=== PATIENT | female | born 1985 | race Caucasian/White ===

== ENCOUNTER 2017-04-24 15:06 | Emergency (ER) | payer BC, MEDICAID ==
[2017-04-24] MEDS ORDERED: Ondansetron ODT TAB* 4 MG PO ONE (15:22)
--- NOTE | 2017-04-24 15:24 | UC ---
UC General HPI - HPI Summary HPI Summary: 31 y/o female presents to the urgent care c/o vomiting w/ a BATES since this morning. Pt states about 2 days ago she started with allergies or cold symptoms , nasal congestion w/ yellowish drainage and sinus pressure, feeling warm at home, Taking Dayquil. This morning she had a severe BATES and then 2 episodes of vomiting and body aches . Then, with a loose bowel movement. Her BATES is 9/10 and temporal. Pt denies photophobia,dizziness, Neck pain, chest pain, SOB, cough , sore throat, abdominal pain. No exposure to tick bites. - History of Current Complaint Chief Complaint: UCGeneralIllness Stated Complaint: FEVER,VOMITING Time Seen by Provider: 04/24/17 15:18 Hx Obtained From: Patient Hx Last Menstrual Period: 04/14/17 Onset/Duration: Gradual Onset, Lasting Days, Still Present Onset Severity: Mild - cold symptoms Current Severity: Severe - Headache w/ vomiting Associated Signs & Symptoms: Positive: Headache, Nausea, Vomiting, Weakness - Allergy/Home Medications Allergies/Adverse Reactions: Allergies Allergy/AdvReac Type Severity Reaction Status Date / Time No Known Allergies Allergy Verified 09/14/15 09:41 PMH/Surg Hx/FS Hx/Imm Hx Previously Healthy: Yes Neurological History: Seizures - as a child - Surgical History Surgical History: Yes Surgery Procedure, Year, and Place: R shoulder arthroscopy - Family History Known Family History: Positive: None - Social History Occupation: Employed Full-time Lives: With Family Alcohol Use: Occasionally Substance Use Type: None Smoking Status (MU): Never Smoked Tobacco Review of Systems Constitutional: Negative Skin: Negative Eyes: Blurred Vision ENT: Nasal Discharge, Sinus Congestion Respiratory: Negative Cardiovascular: Negative Gastrointestinal: Vomiting, Nausea Genitourinary: Negative Motor: Negative Neurovascular: Negative Musculoskeletal: Negative Neurological: Headache Psychological: Negative All Other Systems Reviewed And Are Negative: Yes Physical Exam Triage Information Reviewed: Yes Appearance: Well-Appearing, No Pain Distress, Well-Nourished, Thin Vital Signs: Initial Vital Signs Temp 97.5 F 04/24/17 15:10 Pulse 102 04/24/17 15:10 Resp 16 04/24/17 15:10 BP 100/61 04/24/17 15:10 Pulse Ox 98 04/24/17 15:10 Vital Signs Reviewed: Yes Eye Exam: Normal Eyes: Positive: Conjunctiva Clear - PERRLA, EOMI, fundi grossly normal ENT: Positive: Normal ENT inspection, Hearing grossly normal, Nasal congestion, Nasal drainage - yellowish drainage, B/l maxillary sinus tender to palpation., TMs normal, Other:. Negative: Tonsillar swelling, Tonsillar exudate Dental Exam: Normal Neck exam: Normal Neck: Positive: Supple, Nontender, No Lymphadenopathy Respiratory Exam: Normal Respiratory: Positive: Chest non-tender, Lungs clear, Normal breath sounds Cardiovascular Exam: Normal Cardiovascular: Positive: RRR, No Murmur, Pulses Normal, Brisk Capillary Refill Abdominal Exam: Normal Abdomen Description: Positive: Nontender, No Organomegaly, Soft. Negative: CVA Tenderness (R), CVA Tenderness (L) Bowel Sounds: Positive: Present Musculoskeletal Exam: Normal Musculoskeletal: Positive: Strength Intact, ROM Intact, No Edema Neurological Exam: Normal Psychological Exam: Normal Skin Exam: Normal Course/Dx - Course Course Of Treatment: 31 y/o female presents to the urgent care c/o vomiting w/ a BATES since this morning. Pt states about 2 days ago she started with allergies or cold symptoms, nasal congestion w yellowish drainage and sinus pressure, feeling warm at home, Taking Dayquil. This morning she had a severe BATES and then 2 episodes of vomiting and body aches . Then, with a loose bowel movement. Her BATES is 9/10 and temporal. Pt denies photophobia,dizziness, Neck pain, chest pain, SOB, cough, sore throat, abdominal pain. No exposure to tick bites. HX obtained. Pt with one episode of vomiting at the clinic, Pt given Toradol IM INJ and Zofran to alleviate symptoms. Pt tolerated well meds and after 20 min of observation she felt better, Bates resolved and vomiting. Pt Rx Naproxen PO and Zofran to alleviate symptoms. for allergic rhinitis Loratdine and Flonase. Pt instructed on medications. Pt understood and agreed. Left the clinic ambulating and feeling better. - Differential Dx - Multi-Symptom Differential Diagnoses: Other - gastroenterits, influenza, Headache, lyme disease, sinusitis, pharyngitis Provider Diagnoses: 1-Headache. 2- Nausea and vomiting. 3- Allergic rhinitis Discharge - Discharge Plan Condition: Stable Disposition: HOME Prescriptions: Fluticasone NASAL SPRAY 50MCG* [Flonase NASAL SPRAY 50MCG*] 2 spray BOTH NARES DAILY #1 btl Loratadine & Pseudoephedrine [Loratadine-D 12Hr] 1 tab PO BID #30 tab Naproxen TAB* [Naprosyn 250 mg TAB*] 500 mg PO Q8H PRN #30 tab PRN Reason: Headache Ondansetron ODT TAB* [Zofran 4 MG Odt TAB*] 4 mg PO Q6H PRN #12 tab.odt PRN Reason: Vomiting Patient Education Materials: Acute Headache (ED), Sinusitis (ED), Acute Nausea and Vomiting (ED) Referrals: Celena Adair MD [Medical Doctor] - If Needed Additional Instructions: Take Naproxen PO as instructed after meals to alleviate Headache. Take the Zofran if vomiting continues. increase fluid intake by drinking Gatorade or Pedialyte OTC and eat soft meals. If headache continues and fever develops go immediately to the ER for fruther treatment. Otherwise, f/u with your PCP or return to the urgent care if not improvement.
[2017-04-24] MEDS ORDERED: Ketorolac INJ* 60 MG/2 ML VIAL IM ONE (15:26)
[2017-04-24 16:19] VITALS: BP 104/60
== END 2017-04-24 16:24 | disposition home or self-care (01) ==
LOC: UCCORT 15:06
DX: R51 Headache (principal); R11.2 Nausea with vomiting, unspecified; J30.9 Allergic rhinitis, unspecified
CPT/HCPCS: 96372; 99212; A9270-GY; G0463; J1885

== ENCOUNTER 2017-05-24 21:55 | Emergency (ER) | payer BC ==
[2017-05-24 21:59] VITALS: BP 109/67
--- NOTE | 2017-05-24 22:06 | UC ---
Throat Pain/Nasal Sanjeev HPI - HPI Summary HPI Summary: sore throat x 3 days + fever, no chills, no nasal congestion or cough - History of Current Complaint Chief Complaint: UCRespiratory Stated Complaint: SORE THROAT,HEADACHE,FEVER Time Seen by Provider: 05/24/17 21:56 Hx Obtained From: Patient Hx Last Menstrual Period: 05/13/17 ?: No Onset/Duration: Gradual Onset, Lasting Days - 3 Severity: Moderate Associated Signs & Symptoms: Positive: Fever. Negative: Dysphagia, FB Sensation , Drooling, Wheezing, Hoarseness, Sinus Discomfort, Nasal Discharge, Vomiting, Rash, Other - Allergies/Home Medications Allergies/Adverse Reactions: Allergies Allergy/AdvReac Type Severity Reaction Status Date / Time No Known Allergies Allergy Verified 05/24/17 21:59 Home Medications: Home Medications NK [No Home Medications Reported] 05/24/17 [History Confirmed 05/24/17] PMH/Surg Hx/FS Hx/Imm Hx Previously Healthy: Yes - Surgical History Surgical History: Yes Surgery Procedure, Year, and Place: R shoulder arthroscopy - Family History Known Family History: Positive: None Negative: Diabetes - Social History Alcohol Use: Rare Substance Use Type: None Smoking Status (MU): Never Smoked Tobacco - Immunization History Most Recent Influenza Vaccination: no Review of Systems Constitutional: Fever, Chills, Fatigue Skin: Negative Eyes: Negative ENT: Sore Throat Respiratory: Negative Cardiovascular: Negative Gastrointestinal: Negative Neurological: Headache Is Patient Immunocompromised?: No All Other Systems Reviewed And Are Negative: Yes Physical Exam Triage Information Reviewed: Yes Appearance: Well-Appearing, No Pain Distress, Well-Nourished Vital Signs: Initial Vital Signs Temp 97.9 F 05/24/17 21:56 Pulse 98 05/24/17 21:56 Resp 16 05/24/17 21:56 BP 109/67 05/24/17 21:56 Pulse Ox 100 05/24/17 21:56 Vital Signs Reviewed: Yes Eyes: Positive: Conjunctiva Clear ENT: Positive: Normal ENT inspection, Hearing grossly normal, Pharynx normal, Nasal drainage Neck exam: Normal Neck: Positive: Supple, Nontender, No Lymphadenopathy Respiratory: Positive: Chest non-tender, Lungs clear, Normal breath sounds, No respiratory distress Cardiovascular: Positive: RRR, No Murmur, Pulses Normal Abdominal Exam: Normal Abdomen Description: Positive: Nontender, No Organomegaly, Soft Bowel Sounds: Positive: Present Skin Exam: Normal Throat Pain/Nasal Course/Dx - Differential Dx/Diagnosis Provider Diagnoses: strep pharyngitis Discharge - Discharge Plan Condition: Stable Disposition: HOME Patient Education Materials: Strep Throat (ED) Referrals: Jaylene Leon PA [Primary Care Provider] - If Needed
[2017-05-24] MEDS ORDERED: Amoxicillin PO (*) 500 MG CAP PO ONE (22:09)
== END 2017-05-24 22:14 | disposition home or self-care (01) ==
LOC: UCCORT 21:55
DX: J02.0 Streptococcal pharyngitis (principal)
CPT/HCPCS: 87651; 99212; A9270-GY; G0463

== ENCOUNTER 2017-08-17 08:42 | Emergency (ER) | payer BC ==
[2017-08-17 08:53] VITALS: BP 109/61
--- NOTE | 2017-08-17 09:14 | UC ---
Throat Pain/Nasal Sanjeev HPI - HPI Summary HPI Summary: Sore throat starting yesterday. No fever, rash, abd pain, cough. This started yesterday. it hurts more to swallow. She had strep throat in may. - History of Current Complaint Chief Complaint: UCRespiratory Stated Complaint: SORE THROAT Time Seen by Provider: 08/17/17 08:55 Hx Obtained From: Patient Hx Last Menstrual Period: 2 weeks Onset/Duration: Sudden Onset, Lasting Hours, Still Present Severity: Mild Cough: None Associated Signs & Symptoms: Positive: Dysphagia. Negative: Fever, Vomiting, Rash - Allergies/Home Medications Allergies/Adverse Reactions: Allergies Allergy/AdvReac Type Severity Reaction Status Date / Time No Known Allergies Allergy Verified 08/17/17 08:52 PMH/Surg Hx/FS Hx/Imm Hx Previously Healthy: No - strep throat in may. - Surgical History Surgical History: Yes Surgery Procedure, Year, and Place: R shoulder arthroscopy - Family History Known Family History: Positive: None Negative: Diabetes - Social History Occupation: Employed Full-time Alcohol Use: Rare Substance Use Type: None Smoking Status (MU): Never Smoked Tobacco - Immunization History Most Recent Influenza Vaccination: no Review of Systems ENT: Sore Throat All Other Systems Reviewed And Are Negative: Yes Physical Exam Triage Information Reviewed: Yes Appearance: Well-Appearing, No Pain Distress, Well-Nourished Vital Signs: Initial Vital Signs Temp 98.6 F 08/17/17 08:46 Pulse 88 08/17/17 08:46 Resp 18 08/17/17 08:46 BP 109/61 08/17/17 08:46 Eye Exam: Normal Eyes: Positive: Conjunctiva Clear. Negative: Conjunctiva Inflamed ENT: Positive: Pharyngeal erythema, TMs normal, Uvula midline. Negative: Nasal congestion, Nasal drainage, TM bulging, TM dull, TM red, Tonsillar swelling, Tonsillar exudate, Trismus, Muffled voice, Hoarse voice, Sinus tenderness Neck: Positive: Supple, Nontender, No Lymphadenopathy Respiratory: Positive: Chest non-tender, Lungs clear, Normal breath sounds, No respiratory distress, No accessory muscle use. Negative: Respiratory distress, Decreased breath sounds, Accessory muscle use, Crackles, Rhonchi, Stridor, Wheezing Cardiovascular: Positive: RRR, No Murmur, Pulses Normal, Brisk Capillary Refill Abdomen Description: Positive: Nontender, No Organomegaly, Soft. Negative: Distended, Guarding Musculoskeletal: Positive: Strength Intact, ROM Intact, No Edema Neurological: Positive: Alert, Muscle Tone Normal. Negative: Fatigued Skin Exam: Normal Skin: Negative: rashes Throat Pain/Nasal Course/Dx - Differential Dx/Diagnosis Provider Diagnoses: viral pharyngitis. Discharge - Discharge Plan Condition: Good Disposition: HOME Patient Education Materials: Pharyngitis (ED) Referrals: MARTIN Cortés [Primary Care Provider] - If Needed
== END 2017-08-17 09:19 | disposition home or self-care (01) ==
LOC: UCCORT 08:42
DX: J02.9 Acute pharyngitis, unspecified (principal)
CPT/HCPCS: 87651; 99211; G0463

== ENCOUNTER 2017-10-06 13:14 | Emergency (ER) | payer BC ==
[2017-10-06 13:44] VITALS: BP 119/66
--- NOTE | 2017-10-06 13:59 | UC ---
Throat Pain/Nasal Sanjeev HPI - HPI Summary HPI Summary: 32F presents with sore throat today. She admits to low grade fever and fatigue. She has had a dry cough. She denies any abdominal pain, nausea or vomiting. She has not taken anything. The cough drops helped. She states flu and strep has been going around the school. - History of Current Complaint Chief Complaint: UCGeneralIllness Stated Complaint: SORE THROAT BODYACHES Time Seen by Provider: 10/06/17 13:45 Hx Last Menstrual Period: 2 weeks Pain Intensity: 6 - Allergies/Home Medications Allergies/Adverse Reactions: Allergies Allergy/AdvReac Type Severity Reaction Status Date / Time No Known Allergies Allergy Verified 10/06/17 13:43 PMH/Surg Hx/FS Hx/Imm Hx Endocrine History: Other Other Endocrine History: no DM Neurological History: Seizures - Surgical History Surgical History: Yes Surgery Procedure, Year, and Place: R shoulder arthroscopy - Family History Known Family History: Positive: None Negative: Diabetes - Social History Alcohol Use: Daily Substance Use Type: None Smoking Status (MU): Never Smoked Tobacco - Immunization History Most Recent Influenza Vaccination: no Review of Systems Constitutional: Fever ENT: Sore Throat Respiratory: Cough Cardiovascular: Negative All Other Systems Reviewed And Are Negative: Yes Physical Exam Triage Information Reviewed: Yes Appearance: Well-Appearing Vital Signs: Initial Vital Signs Temp 100.3 F 10/06/17 13:39 Pulse 80 10/06/17 13:39 Resp 14 10/06/17 13:39 BP 119/66 10/06/17 13:39 Pulse Ox 100 10/06/17 13:39 Vital Signs Reviewed: Yes Eye Exam: Normal ENT: Positive: Pharyngeal erythema, Uvula midline, Other - soft palate symmetric. Negative: Tonsillar swelling, Tonsillar exudate, Trismus, Muffled voice Neck: Positive: Supple, Nontender, No Lymphadenopathy Respiratory: Positive: Lungs clear, Normal breath sounds Cardiovascular: Positive: RRR Abdomen Description: Positive: Nontender, Soft Bowel Sounds: Positive: Present Musculoskeletal Exam: Normal Neurological Exam: Normal Psychological Exam: Normal Skin Exam: Normal Throat Pain/Nasal Course/Dx - Course Course Of Treatment: 32F presents with sore throat today. She admits to low grade fever and fatigue. She has had a dry cough. She denies any abdominal pain , nausea or vomiting. She has not taken anything. The cough drops helped. She states flu and strep has been going around the school. on exam phaynx erythema, soft palate symmetric, uvula midline. strept neg. lungs CTA. flu A pos. discussed with patient and will start on tamiflu. patient understand and agrees with plan. - Differential Dx/Diagnosis Differential Diagnosis/HQI/PQRI: Pharyngitis, Tonsillitis, URI Provider Diagnoses: influenza A Discharge - Discharge Plan Condition: Good Disposition: HOME Prescriptions: Ondansetron ODT TAB* [Zofran 4 MG Odt TAB*] 4 mg PO Q6H PRN #10 tab.odt PRN Reason: Nausea Oseltamivir CAP* [Tamiflu CAP*] 75 mg PO BID #10 cap Patient Education Materials: Influenza (ED) Forms: *Work Release Referrals: MARTIN Cortés [Primary Care Provider] - Additional Instructions: Take tamiflu twice a day for 5 days Take zofran every 6 hours for nausea as needed Take Tylenol or ibuprofen for pain/fever every 6 hours Use saline spray in nose as much as needed for nasal congestion Use humidifier in room or can use warm water in bowls for cough Drink plenty of fluids and eat food as tolerated Can use cough drops or products such as cloraseptic spray for sore throat Return to ED if develop any new or worsening symptoms
== END 2017-10-06 14:15 | disposition home or self-care (01) ==
LOC: UCCORT 13:14
DX: J09.X2 Influenza due to identified novel influenza A virus with other respiratory manifestations (principal)
CPT/HCPCS: 87502; 87651; 99212; G0463

== ENCOUNTER 2017-12-26 18:53 | Emergency (ER) | payer BC ==
[2017-12-26 19:33] VITALS: BP 127/80
[2017-12-26] MEDS ORDERED: Ondansetron ODT TAB* 4 MG PO ONE (20:06)
--- NOTE | 2017-12-26 20:09 | UC ---
UC General HPI - HPI Summary HPI Summary: pt is c/o a headache with nausea, vomiting x3 and diarrhea x2. 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 no fever, recent travel hx or antibiotic use. no abdominal pain of IBD. - History of Current Complaint Hx Obtained From: Patient Hx Last Menstrual Period: 12/05/17 Timing: Constant Pain Intensity: 8 Aggravating: nothing Alleviating: nothing Associated Signs & Symptoms: Positive: Diarrhea, Headache, Nausea, Vomiting. Negative: Abdominal Pain, Fever <Abby Nettles - Last Filed: 12/26/17 20:31> <Alysa Flannery - Last Filed: 12/26/17 21:35> - History of Current Complaint Chief Complaint: UCGeneralIllness Stated Complaint: BATES/NAUSEA/VOMTING Time Seen by Provider: 12/26/17 19:57 - Allergy/Home Medications Allergies/Adverse Reactions: Allergies Allergy/AdvReac Type Severity Reaction Status Date / Time No Known Allergies Allergy Verified 10/06/17 13:43 Home Medications: Home Medications Acetaminophen [Tylenol Extra Strength] 500 mg PO Q6H PRN 12/26/17 [History Confirmed 12/26/17] PMH/Surg Hx/FS Hx/Imm Hx Previously Healthy: Yes - Surgical History Surgical History: Yes Surgery Procedure, Year, and Place: R shoulder arthroscopy - Family History Known Family History: Positive: None Negative: Diabetes - Social History Occupation: Employed Full-time Lives: Alone Alcohol Use: Daily Substance Use Type: None Smoking Status (MU): Never Smoked Tobacco - Immunization History Most Recent Influenza Vaccination: no Vaccination Up to Date: Yes <Abby Nettles - Last Filed: 12/26/17 20:31> Review of Systems Constitutional: Negative Skin: Negative Eyes: Negative ENT: Negative Respiratory: Negative Cardiovascular: Negative Gastrointestinal: Vomiting, Diarrhea, Nausea Genitourinary: Negative Motor: Negative Neurovascular: Negative Musculoskeletal: Negative Neurological: Headache Psychological: Negative Is Patient Immunocompromised?: No All Other Systems Reviewed And Are Negative: Yes <Abby Nettles - Last Filed: 12/26/17 20:31> Physical Exam Triage Information Reviewed: Yes Appearance: Well-Appearing Vital Signs: Initial Vital Signs Temp 97.7 F 12/26/17 19:21 Pulse 81 12/26/17 19:21 Resp 18 12/26/17 19:21 BP 127/80 12/26/17 19:21 Pulse Ox 100 12/26/17 19:21 Vital Signs Reviewed: Yes Eyes: Positive: Conjunctiva Clear ENT: Positive: Pharynx normal, TMs normal. Negative: Nasal congestion, Nasal drainage Neck: Positive: Supple, Nontender, No Lymphadenopathy Respiratory: Positive: Lungs clear, Normal breath sounds Cardiovascular: Positive: RRR, No Murmur Abdomen Description: Positive: Nontender, No Organomegaly, Soft. Negative: Distended, Guarding Bowel Sounds: Positive: Present Musculoskeletal: Positive: ROM Intact Neurological: Positive: Alert Psychological: Positive: Age Appropriate Behavior Skin Exam: Normal <Abby Nettles - Last Filed: 12/26/17 20:31> Vital Signs: Initial Vital Signs Temp 97.7 F 12/26/17 19:21 Pulse 81 12/26/17 19:21 Resp 18 12/26/17 19:21 BP 127/80 12/26/17 19:21 Pulse Ox 100 12/26/17 19:21 <Alysa Flannery - Last Filed: 12/26/17 21:35> Re-Evaluation - Re-Evaluation Second Eval Re-Evaluation Time: 20:28 Change: Improved - TAKING PO FLUIDS <Abby Nettles - Last Filed: 12/26/17 20:31> Course/Dx - Course Course Of Treatment: rapid nflu neg, non toxic, no concern for parasite of bacterial infectiopn. tx supportive - Differential Dx - Multi-Symptom Provider Diagnoses: vomiting. diarrhea <Abby Nettles - Last Filed: 12/26/17 20:31> Discharge - Sign-Out/Discharge Documenting (check all that apply): Discharge - Billing Disposition and Condition Condition: STABLE Disposition: HOME <Abby Nettles - Last Filed: 12/26/17 20:31> - Billing Disposition and Condition Condition: STABLE Disposition: HOME <Alysa Flannery - Last Filed: 12/26/17 21:35> - Discharge Plan Condition: Stable Disposition: HOME Patient Education Materials: Acute Nausea and Vomiting (ED), Acute Diarrhea (ED ) Forms: *Work Release Referrals: MARTIN Cortés [Primary Care Provider] - 3 Days Attestation Statement User Type: Provider - examined by ms. -Keren <Alysa Flannery - Last Filed: 12/26/17 21:35> Addendum entered and electronically signed by Abby Nettles PA 12/26/17 20:31 : UC Addendum Addendum: diagnostic: RAPID FLU=NEG
[2017-12-26] MEDS ORDERED: Acetaminophen TAB* 325 MG PO ONE (20:11)
== END 2017-12-26 20:37 | disposition home or self-care (01) ==
LOC: UCCORT 18:53
DX: R11.2 Nausea with vomiting, unspecified (principal); R19.7 Diarrhea, unspecified; R51 Headache
CPT/HCPCS: 87502; 99212; A9270-GY; G0463

== ENCOUNTER 2019-02-05 20:37 | Emergency (ER) | payer BC ==
[2019-02-05] MEDS ORDERED: Ketorolac INJ* 30 MG/ML 1 ML VIAL IV PUSH ONE (20:53)
[2019-02-05] MEDS ORDERED: NS 0.9% 1000 ML** 1,000 ML IV ONE (20:53)
[2019-02-05] MEDS ORDERED: Ondansetron INJ* 2 MG/ML VIAL IV ONE (20:53)
[2019-02-05 20:58] VITALS: BP 123/75
--- NOTE | 2019-02-05 20:59 | UC ---
Headache HPI - HPI Summary HPI Summary: Patient was out in the sun all day yesterday, in the evening started to not feel well, nasueated, BATES and over heated. this morning headache was worse and she began vomiting, took a zofran but vomited again. has not been able to eat, can tolerate small amounts of fluids - History Of Current Complaint Stated Complaint: HEADACH, VOMITTING Time Seen by Provider: 02/05/19 20:46 Hx Obtained From: Patient Hx Last Menstrual Period: 12/05/17 ?: No Onset/Duration: Sudden Onset, Lasting Days Onset Of Symptoms: Gradual Initially Headache Was: Moderate Currently Pain Is: Moderate Timing: Constant Character: Dull, Pressure Location of Headache: Diffuse Associated Signs And Symptoms: Positive: Dizziness, Nausea, Vomiting - Allergies/Home Medications Allergies/Adverse Reactions: Allergies Allergy/AdvReac Type Severity Reaction Status Date / Time No Known Allergies Allergy Verified 02/05/19 20:53 Home Medications: Home Medications Ondansetron TAB* [Zofran 4 MG Tab*] 4 mg PO Q6H PRN 02/05/19 [History Confirmed 02/05/19] PMH/Surg Hx/FS Hx/Imm Hx Previously Healthy: Yes - Surgical History Surgical History: Yes Surgery Procedure, Year, and Place: R shoulder arthroscopy - Family History Known Family History: Positive: None Negative: Diabetes - Social History Alcohol Use: Daily Substance Use Type: None Smoking Status (MU): Never Smoked Tobacco - Immunization History Most Recent Influenza Vaccination: no Vaccination Up to Date: Yes Review of Systems All Other Systems Reviewed And Are Negative: Yes Constitutional: Positive: Fatigue Gastrointestinal: Positive: Vomiting, Nausea Neurological: Positive: Headache Is Patient Immunocompromised?: No Physical Exam Triage Information Reviewed: Yes Appearance: Well-Nourished, Ill-Appearing, Pain Distress Vital Signs Reviewed: Yes Eye Exam: Normal ENT: Positive: Pharynx normal, TMs normal Dental Exam: Normal Neck exam: Normal Respiratory Exam: Normal Respiratory: Positive: Chest non-tender, Lungs clear, Normal breath sounds Cardiovascular Exam: Normal Cardiovascular: Positive: RRR, No Murmur, Pulses Normal Abdominal Exam: Normal Bowel Sounds: Positive: Present Musculoskeletal Exam: Normal Neurological Exam: Normal Psychological Exam: Normal Skin Exam: Normal Headache Course/Dx - Course Course Of Treatment: hx obtained, exam performed ,meds reviewed, treated for headache, and dehydration - Differential Dx/Diagnosis Provider Diagnosis: Heat exhaustion Discharge - Sign-Out/Discharge Documenting (check all that apply): Patient Departure All imaging exams completed and their final reports reviewed: No Studies - Discharge Plan Condition: Stable Disposition: HOME Patient Education Materials: Heat Exhaustion (DC) Referrals: No Primary Care Phys,NOPCP [Primary Care Provider] - Additional Instructions: 1. rest 2. INcrease fluids 3. Do not take ibuprofen or naproxen until after 5 am. you may use tylenol if needed. 4. eat as tolerated 5. FOllow up if not improving. - Billing Disposition and Condition Condition: STABLE Disposition: Home
== END 2019-02-05 21:55 | disposition home or self-care (01) ==
LOC: UCCORT 20:37
DX: T67.5XXA Heat exhaustion, unspecified, initial encounter (principal); X58.XXXA Exposure to other specified factors, initial encounter; Y92.9 Unspecified place or not applicable
CPT/HCPCS: 96361; 96374; 96375; 99211; G0463; J1885; J2405